=== PATIENT | female | born 1955 | race Caucasian/White ===

== ENCOUNTER 2021-11-13 17:49 | Emergency (ER) | payer MEDICARE, BC, SELFPAY ==
[2021-11-13 17:53] VITALS: BP 154/77; PULSE 57; RESP 17; TEMP 36.8; O2SAT 100
--- NOTE | 2021-11-13 18:00 | DI.RAD_ITS ---
Exam(s) XR WRIST RT COMPLETE EXAM: XR WRIST RT COMPLETE CLINICAL HISTORY: fall directly on wrist, radial sided pain/abrasion. TECHNIQUE: 2D digital imaging was performed of the right wrist. Four views were obtained. Scaphoid, PA, lateral and oblique views were obtained. COMPARISON: No exams were available for comparison FINDINGS: BONES: There is an acute nondisplaced fracture involving the distal metaphysis of the radius. There does appear to be extension into the radiocarpal joint. No bony destructive lesion is seen. JOINTS: The carpal bones are normally aligned. SOFT TISSUE: Mild soft tissue swelling is present. IMPRESSION: Nondisplaced intra-articular fracture of the distal radius. DATA REPOSITORY: RADIATION DOSE DELIVERED:
--- NOTE | 2021-11-13 18:08 | ED.GENADUL_ITS ---
Discharge Plan Disposition Patient Disposition: HOME Condition: Stable Discharge Details Clinical Impression: Distal radius fracture, right Primary Care Provider: Eliza,Local ED Provider: Anabel Guillen Home Meds and New Rx's Prescriptions: Continued levothyroxine 75 mcg Tablet 75 mcg PO DAILY Discharge Instructions Instructions: Wrist Fracture in Adults (ED) Additional Instructions: Please encourage rest, ice, elevation. Tylenol and/or ibuprofen as needed for discomfort. Please continue with the splint until reevaluated by orthopedics. Please call orthopedics tomorrow to schedule follow-up appointment. If you develop any new or worsening symptoms please seek care urgently once again. Please avoid any heavy lifting and keep splint dry. Referrals: Jeffrey Mederos MD [ [facility] STAFF PHYSICIAN] - Discharge Data Discharge Date/Time-TO BE ENTERED AT DEPARTURE: 11/13/21 19:54 Medical Decision Making Patient is a pleasant [id number] 66-year-old female presenting today with chief complaint of right wrist pain. She reports a prior to arrival she was playing pickle ball when she fell on her right hand landing on her Fitbit watch. Suffered an abrasion from the watch itself. States that her tetanus is up-to-date. She denies other injury at the time of the incident. On exam, patient appears nontoxic. Is splinting and elevating RUE. She has circular abrasion to dorsal wrist consistent with hx of landing on watch. This s area of maximal discomfort. Semiflexed position, no notable deformity. 2+ distal pulses, intact capillary refill and sensation. No evidence of hand or elbow trauma. Primarily concerned for distal radius fx. Will obtain XR. Will give APAP and NSAId for discomfort. FINDINGS: Bones/joints: There is a nondisplaced intra-articular fracture through the distal right radial metaphysis and epiphysis, which appears to involve the ventral and medial cortices of the metaphysis. There are no subluxations. Osseous mineralization is normal. There are no inflammatory osseous erosive changes. The joint spaces are maintained without degenerative changes. No focal osseous lesions are identified. Soft tissues: There is mild soft tissue swelling dorsal to the distal right radial epiphysis. IMPRESSION: 1. Nondisplaced intra-articular distal radial fracture as described above. 2. No subluxations. Discussed findings with the patient and her . Fit with plaster thumb- spica splint. Remains neurovascular intact after application. Encouraged RICE. Advised f/u with orthopedics. She is from [place] but plans to be here for awhile and would like to f/u locally. Have plast on fracture list. Return precautions discussed. Discussed pain management. All of her questions and concerns were addressed, she is in agreemetn with this plan. HPI General Date/Time Provider Initiated Documentation: 11/13/21 17:51 . Limitations to Documentation: no limitations . Information obtained by: patient, family () and RN notes reviewed . History of Present Illness 66 year old F presents to the emergency department with the chief complaint of right wrist pain, described as moderate, with intensity rated at 7. Quality is described as aching, and is localized to the right and upper extremity. Patient reports no radiation. Patient started experiencing this minute(s) and it has been constant. Immobilization improves symptom(s), Movement worsens symptoms . Patient notes no other symptoms.. Patient did receive the following treatments prior to arrival, none Related Data Home Medications Medication Instructions Recorded Confirmed levothyroxine 75 mcg tablet 75 mcg PO DAILY 11/13/21 11/13/21 Allergies Allergy/AdvReac Type Severity Reaction Status Date / Time No Known Allergies Allergy Unverified 11/13/21 17:57 General Stated Complaint: Orthopedic STUART: 3 Review of Systems Constitutional Constitutional: Reports as per HPI, Denies chills, Denies fever(s), Denies headache(s) and Denies weakness ENT Ears, Nose, Mouth, and Throat: Denies headache(s) Cardiovascular Cardiovascular: Reports as per HPI Musculoskeletal Musculoskeletal: Reports as per HPI and Denies tingling Integumentary/Breasts Skin/Breast: Reports as per HPI and Reports wounds (abrasion) Neurologic Neurologic: Reports as per HPI, Denies headache(s), Denies tingling, Denies paresthesias and Denies weakness PFSH All Active Problems (Updated 11/13/21 @ 19:40 by SUJATHA Swenson) Distal radius fracture, right (Acute) Social History Smoking/Tobacco Use Status: Never Smoking risk assessment performed?: Yes Alcohol Intake: current Alcohol Intake frequency: holidays/special occasions only Alcohol type: wine Drug use: Never Substance use type: does not use Do you feel safe at home: Yes Do you feel safe in your relationship?: Yes Exam Const General: cooperative, healthy appearing, comfortable, no acute distress, well developed and well groomed Nutritional Appearance: average body habitus and well nourished Orientation: alert and awake Resp Effort & Inspection: normal respiratory effort, able to speak in complete sentences and no respiratory distress Cardio Rate: regular rate Rhythm: regular rhythm Skin Trauma: abrasion Neuro General: patient alert and patient awake Cognition: normal cognition Speech: speech normal Gait: normal gait Motor: muscle tone normal throughout Sensory Exam: no sensory deficits noted Extrem Hand/finger images: 1. Area of discomfort. Circular abrasion about 1cm in diameter centrally. 2+ distal pulses. No palpable or visble deformity. Paitent holding in semiflexeed position. No pain over snuffbox or with axial thumb loading of thumb. No pain a long palmar or dorsal hand, fingers. Capillary refill and sensation intact. Full flexion/extension of elbow. Discomfort at the wrist with supination/pronation. Psych Appearance: grossly normal and well kempt Mental Status: mental status grossly normal Speech and Movement: speech and movement normal Course Vital Signs Vital signs: Vital Signs Temperature 36.8 C 11/13/21 17:53 Pulse 57 L 11/13/21 17:53 Respiratory Rate 17 11/13/21 17:53 Blood Pressure 154/77 H 11/13/21 17:53 Pulse Oximetry 100 11/13/21 17:53 Temperature 36.8 C 11/13/21 17:53 Temperature Source Temporal Artery Scan 11/13/21 17:53 Pulse 57 L 11/13/21 17:53 Respiratory Rate 17 11/13/21 17:53 Respiratory Effort Non-Labored 11/13/21 17:56 Blood Pressure 154/77 H 11/13/21 17:53 Blood Pressure Position Sitting 11/13/21 17:53 Pulse Oximetry 100 11/13/21 17:53 Oxygen Delivery Method Room Air 11/13/21 17:53 Oxygen Flow Rate 0 11/13/21 17:53 Pain Level 7 11/13/21 17:53 PAWSS Have you Been Recently Intoxicated or Drunk Within the Last 30 days?: No Have you Ever Experienced Previous Episodes of Alcohol Withdrawal?: No Have you ever Experienced Withdrawal Seizures?: No Have you ever Experienced Delirium Tremens(DT)s?: No Have you ever undergone Alcohol Rehabilitation Treatment (i.e, inpt ot outpatient treatment programs)?: No Have you ever Experienced Blackouts?: No Have you ever Combined Alcohol with other Downers within the last 90 days?: No Have you ever Combined Alcohol with any other Substance of Abuse during the last 90 days?: No Result: 0
[2021-11-13] MEDS: Acetaminophen 325 MG TAB 650 MG PO (18:20)
[2021-11-13] MEDS: Ibuprofen 600 MG TAB PO (18:20)
--- NOTE | 2021-11-13 19:19 | DI.VRAD_ITS ---
PROCEDURE INFORMATION: Exam: XR Right Wrist Exam date and time: 11/13/2021 6:41 PM Age: 66 years old Clinical indication: Injury or trauma; Blunt trauma (contusions or hematomas); Right; Injury date: 11/13/21; Injury details: Fall directly on wrist, radial sided pain/abrasion TECHNIQUE: Imaging protocol: Radiologic exam of the Right wrist. Views: 3 or more views. COMPARISON: No relevant prior studies available. FINDINGS: Bones/joints: There is a nondisplaced intra-articular fracture through the distal right radial metaphysis and epiphysis, which appears to involve the ventral and medial cortices of the metaphysis. There are no subluxations. Osseous mineralization is normal. There are no inflammatory osseous erosive changes. The joint spaces are maintained without degenerative changes. No focal osseous lesions are identified. Soft tissues: There is mild soft tissue swelling dorsal to the distal right radial epiphysis. IMPRESSION: 1. Nondisplaced intra-articular distal radial fracture as described above. 2. No subluxations. Dictated and Authenticated by: Ryan Mann MD. Ordering:MARELY Little MD
== END 2021-11-13 19:54 | disposition home or self-care (01) ==
PROVIDERS: Emergency Provider Physician Assistant
DX: S52.591A Other fractures of lower end of right radius, initial encounter for closed fracture (principal); W18.30XA Fall on same level, unspecified, initial encounter
CPT/HCPCS: 29125; 99283; 73110